=== PATIENT | female | born 1990 | race Caucasian/White ===

== ENCOUNTER 2025-03-02 14:30 | Outpatient (RCR) | payer MEDICAID, SELFPAY ==
--- NOTE | 2025-02-04 14:53 | PT.OIERPT ---
PT OP Initial Eval Patient Information Outpatient Physical Therapy Treatment Date: 02/04/25 Visit Reasons: GBS Medical Diagnosis: GBS; Difficulty Walking Treatment Dx #1: Difficulty Walking Date of Onset: 2021 Smoking Status Smoking Status: Current every day smoker (yes) Cessation Counseling Provided: BILLY was advised that quitting smoking is the single most important factor to protect the health of themselves and their family. Discussed the benefits of quitting smoking with patient. Encouraged patient to quit smoking and provided Cessation assistance materials and resources. Tobacco Use: Cigarette Years smoked: 10 Are you interested in quitting?: No Would you like additional Smoking Cessation Counseling?: No Initial Assessment Subjective: Pt is a 34 y/o female reports of GBS since 2021. Pt has difficulty with walking, balance, chores, self care, standing, and performing recreational activities. Objective: BLE AROM: all motions are WFL BLE MMTs: grossly 3+/5 Sit-Stand Test: 7 reps Assessment: Pt demonstrate BLE weakness, imbalance, and gait difficulty leading to difficulty with ADLs. Pt will benefit from physical therapy to increase mobility, strength, and work on ambulation Short Term and Shelter Goals 1) Increase BLE MMTs grossly to 4-/5 in 12 wks to be able to perform chores 2) Increase sit-stand reps to 12 reps in 12 wks to improve overall LE endurance to be able to perform self care activities 3) Improve gait chief mechanical officer in 12 wks to be able to transition to 4ww 4) Increase balance in 12 wks to prevent future falls 5) Indep with HEP Treatment Plan 1) Manual Therapy 2) Therapeutic Activities 3) Therapeutic Exercises 4) Balance Training 5) Gait Training Frequency and Duration: 2 x wk for 12 wks Certification Dates: 02/04/25 to 05/06/25 Procedure Charges OP PT Eval Mod Complex 30 minutes: Yes
--- NOTE | 2025-02-12 15:05 | PT.ODAYNRPT ---
PT Outpatient Daily Note OP Daily Note Outpatient Physical Therapy Treatment Date: 02/12/25 Visit Reasons: GBS Subjective: Pt fell ~ 2 weeks ago. Pt notice a bump in her left ankle. Pt has been trying to walk more lately with her walker. Objective: Please see flow chart for list of ther ex performed Assessment: inspected left ankle notice which looked normal. Pt advised to schedule appt with PCP if ankle pain worsen. Pt gave verbal understanding. Pt fatigue post PT session Plan: Continue with PT Length of Time (minutes) of Treatment: 30 Minutes Procedure Charges Therapeutic Exercise 30 minutes: Yes
--- NOTE | 2025-02-16 15:23 | PTNOTE_ITS ---
PT Outpatient Daily Note OP Daily Note Outpatient Physical Therapy Treatment Date: 02/16/25 Visit Reasons: GBS Subjective: Pt fell yesterday grabbing a storage battery charger from the outlet. Pt feels okay and notice a small bruise on her knee. Pt denies of soreness after last session Objective: Please see flow chart for list of ther ex performed Assessment: progress hip exercises with YTB with good tolerance. Pt pace throughout PT session to decrease fatigue Plan: Continue with PT Length of Time (minutes) of Treatment: 30 Minutes Procedure Charges Therapeutic Exercise 30 minutes: Yes
--- NOTE | 2025-02-19 15:58 | PT.ODAYNRPT ---
PT Outpatient Daily Note OP Daily Note Outpatient Physical Therapy Treatment Date: 02/19/25 Visit Reasons: GBS Subjective: Pt's feeling better. Pt wants to be push a little more Objective: Please see flow chart for list of ther ex performed Assessment: improved control with LEs during monster and side step exercises Plan: Continue with PT Length of Time (minutes) of Treatment: 30 Minutes Procedure Charges Therapeutic Exercise 30 minutes: Yes
--- NOTE | 2025-02-23 14:47 | PTNOTE_ITS ---
PT Outpatient Daily Note OP Daily Note Outpatient Physical Therapy Treatment Date: 02/23/25 Visit Reasons: GBS Subjective: Pt's mentioned back of her feet L>R is hurting. Pt has KT on it right now and wants therapist to check. Objective: Please see flow chart for list of ther ex performed Assessment: inspected left heel pain. Pt exhibit mild coby's deformity. 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 Added tandem walking in PB to exercise program; patient was able to complete exercise with good coordination Plan: Continue with PT Length of Time (minutes) of Treatment: 30 Minutes Procedure Charges Therapeutic Exercise 30 minutes: Yes
--- NOTE | 2025-03-02 15:25 | PT.ODAYNRPT ---
PT Outpatient Daily Note OP Daily Note Outpatient Physical Therapy Treatment Date: 03/02/25 Visit Reasons: GBS Subjective: Pt's legs are stronger. Pt mentioned she's getting her left knee xray and possible MRI. Pt further reports of improving sit to stand. Objective: Please see flow chart for list of ther ex performed Assessment: improve control with gait and sit to stand transition with less use of the hands Plan: Continue with PT Length of Time (minutes) of Treatment: 30 Minutes Procedure Charges Therapeutic Exercise 30 minutes: Yes
== END 2025-03-03 23:59 | disposition home or self-care (01) ==
LOC: CPTX 14:30
PROVIDERS: PCP Nurse Practitioner Family; Referring Provider Nurse Practitioner Family; Visit Provider Nurse Practitioner Family
DX: R26.2 Difficulty in walking, not elsewhere classified (principal); R26.89 Other abnormalities of gait and mobility; R53.1 Weakness; G61.0 Guillain-Barre syndrome; Z71.6 Tobacco abuse counseling; F17.210 Nicotine dependence, cigarettes, uncomplicated
CPT/HCPCS: 97110; 97162

== ENCOUNTER → 2025-03-16 | Outpatient (CLI) | payer MEDICAID, SELFPAY ==
--- NOTE | 2025-03-16 15:55 | XR_ITS ---
Examination: Knee, left , 3 views Technique: Knee AP, lateral, oblique 3 views Date and time of exam: March 16, 2025 1721 hours INDICATIONS: Left knee pain beginning one month ago. FINDINGS: Severe osteopenia Mild to moderate near medial joint space Mild narrowing patellofemoral joint No fractures IMPRESSION: Mild to moderate narrowing medial joint space Mild narrowing patellofemoral joint
--- NOTE | 2025-03-16 15:55 | XR_ITS ---
Examination: Foot bilateral, 6 views Technique: AP, oblique, lateral views each foot total 6 views Date and time of exam: March 16, 2025 1721 hours INDICATIONS: Bilateral foot pain beginning one month ago FINDINGS: Moderate osteopenia Bilateral mild narrowing tarsal, tarsometatarsal, metatarsal phalangeal joints No erosive arthritis Mild bunion deformity right foot IMPRESSION: Bilateral mild narrowing joints of the foot No erosive arthritis Mild bunion deformity right foot
== END | disposition home or self-care (01) ==
PROVIDERS: PCP Nurse Practitioner Family; Referring Provider Nurse Practitioner Family; Visit Provider Nurse Practitioner Family
DX: M21.611 Bunion of right foot (principal); M25.872 Other specified joint disorders, left ankle and foot; M25.871 Other specified joint disorders, right ankle and foot; M25.862 Other specified joint disorders, left knee
CPT/HCPCS: 73562; 73630

== ENCOUNTER → 2025-03-30 | Outpatient (CLI) | payer MEDICAID, SELFPAY ==
[2025-03-30 09:07] LABS: HCG Qualitative,Urine Negative
--- NOTE | 2025-03-30 09:41 | XR_ITS ---
Examination: MRI of brain without intravenous contrast. MRI brain with intravenous contrast. Date and time of exam:March 30, 2025 1103 hours INDICATIONS: Patient fell 2021 followed by headaches numbness in the left side of the head and dizziness daily Technique: Multiple axial and sagittal images of the brain to been obtained. Siemens high-resolution 1.52 Shila short bore scanner utilized. Sagittal sections, T1 weighted images, TR 500, TE 14, are performed. Axial sections proton-density and T2-weighted images have been obtained. Inversion recovery axial images, TR 9260, TE 111, TR 2500. Diffusion weighted images, axial sections, TR 4800, TE 128, B value 1000. Axial sections, ADC map, TR 4800, TE 128. Axial and coronal images were also obtained post 20 cc gadolinium administered intravenously. Findings:: Enlargement of the sella turcica is not present. The optic chiasm and infundibular stalk are not remarkable. There is no localized enlargement of the medulla or rafaela. Fourth ventricle and cerebellar tonsils appear normal in position. No subacute area of hemorrhage density is seen. Fourth ventricle is midline. Mass in the cerebellopontine angle region is not evident. 7th and 8th nerve complexes exhibit symmetry Globes are symmetrical Orbital musculature including medial lateral rectus muscles do not exhibit abnormality Increased white matter signal is not seen Effacement of the cortical sulcal markings is not identified. Mass effect upon the ventricular system is not identified. Diffusion-weighted images demonstrate no focus of restricted diffusion Contrast images demonstrate no abnormal enhancement Bilateral mastoiditis Impression: Negative for acute hemorrhage mass effect or midline shift No acute infarct No MR findings diagnostic for demyelinating disease Bilateral mastoiditis
== END | disposition home or self-care (01) ==
LOC: SMRI 08:38
PROVIDERS: PCP Physician Assistant; Referring Provider Physician Assistant; Visit Provider Physician Assistant
DX: R51.9 Headache, unspecified (principal); R42 Dizziness and giddiness; H70.93 Unspecified mastoiditis, bilateral; S06.0X9S Concussion with loss of consciousness of unspecified duration, sequela; W19.XXXS Unspecified fall, sequela
CPT/HCPCS: 70553; 81025; A9579

== ENCOUNTER 2025-04-02 14:00 | Outpatient (RCR) | payer MEDICAID, SELFPAY ==
--- NOTE | 2025-03-12 15:01 | PT.ODAYNRPT ---
PT Outpatient Daily Note OP Daily Note Outpatient Physical Therapy Treatment Date: 03/12/25 Visit Reasons: GBS Subjective: Pt's legs are tired and sore. Pt mentioned she walked a lot and went up/down 20 steps. Pt's body is hurting all over again. Objective: Please see flow chart for list of ther ex performed Assessment: decrease BLE resistance today due to fatigue prior to PT session. Pt tolerate all modified exercises today Plan: Continue with PT Length of Time (minutes) of Treatment: 30 Minutes Procedure Charges Therapeutic Exercise 30 minutes: Yes
--- NOTE | 2025-03-16 15:50 | PTNOTE_ITS ---
PT Outpatient Daily Note OP Daily Note Outpatient Physical Therapy Treatment Date: 03/16/25 Visit Reasons: GBS Subjective: Pt fell yesterday and hit her buttocks. Pt notice some soreness but feels okay to do therapy. Objective: Please see flow chart for list of ther ex perfomed Assessment: worked on ALTAGRACIA today to help with dynamic balance and static balance. Pt de monstrate unsteady with GT using one hand as support in PB and will require more practice for improvement Plan: Continue with PT Length of Time (minutes) of Treatment: 30 Minutes Procedure Charges Therapeutic Exercise 30 minutes: Yes
--- NOTE | 2025-03-19 15:03 | PT.ODAYNRPT ---
PT Outpatient Daily Note OP Daily Note Outpatient Physical Therapy Treatment Date: 03/19/25 Visit Reasons: GBS Subjective: Pt is having a good day and more energize today. Objective: Please see flow chart for list of ther ex performed Assessment: patient's overall gait has improved with wider ALTAGRACIA noted. Pt was fatigue post PT session and require longer rest breaks today Plan: Continue with PT Length of Time (minutes) of Treatment: 30 Minutes Procedure Charges Therapeutic Exercise 30 minutes: Yes
--- NOTE | 2025-03-23 15:06 | PT.ODAYNRPT ---
PT Outpatient Daily Note OP Daily Note Outpatient Physical Therapy Treatment Date: 03/23/25 Visit Reasons: GBS Subjective: Pt notice she's walking better with improved balance. Pt was able to take a few steps from the car door to the trunk without her walker. 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
--- NOTE | 2025-03-31 15:05 | PT.ODAYNRPT ---
PT Outpatient Daily Note OP Daily Note Outpatient Physical Therapy Treatment Date: 03/31/25 Visit Reasons: GBS Subjective: Pt reports she is doing ok, mentioned she received her imaging results. Pt shared she has narrowing of L knee and B ankle and bunion on L foot. Objective: Please see flow sheet for ther ex list. Assessment: Interventions completed alternating sitting and standing to maximize participation. Plan: Continue with POC. Length of Time (minutes) of Treatment: 30 Minutes Procedure Charges Therapeutic Exercise 30 minutes: Yes
--- NOTE | 2025-04-02 14:30 | PT.ODAYNRPT ---
PT Outpatient Daily Note OP Daily Note Outpatient Physical Therapy Treatment Date: 04/02/25 Visit Reasons: GBS Subjective: Pt's legs are sore and hurt from lunges last session. Pt almost fell a few days ago. Objective: Please see flow chart for list of ther ex performed Assessment: no resistance used today due to reported soreness and pain from last session. Pt tolerate all exercises today. Pt continues to demonstrate improve endurance and able to walk longer with walker without resting Plan: Continue with PT Length of Time (minutes) of Treatment: 30 Minutes Procedure Charges Therapeutic Exercise 30 minutes: Yes
== END 2025-04-03 23:59 | disposition home or self-care (01) ==
LOC: CPTX 14:00
PROVIDERS: PCP Nurse Practitioner Family; Referring Provider Nurse Practitioner Family; Visit Provider Nurse Practitioner Family
DX: R26.2 Difficulty in walking, not elsewhere classified (principal); R26.89 Other abnormalities of gait and mobility; R53.1 Weakness; G61.0 Guillain-Barre syndrome
CPT/HCPCS: 97110

== ENCOUNTER 2025-04-30 14:00 | Outpatient (RCR) | payer MEDICAID, SELFPAY ==
--- NOTE | 2025-04-09 15:04 | PT.ODAYNRPT ---
PT Outpatient Daily Note OP Daily Note Outpatient Physical Therapy Treatment Date: 04/09/25 Visit Reasons: GBS Subjective: Pt's legs are stronger. Pt is using less of the knee brace on the left side Objective: Please see flow chart for list of ther ex performed Assessment: improved BLE control with lunges and hip exercises. Pt exhibit difficulty with airex balance exercise due to decrease bilateral feet sensation where she relax on the knee to counter balance sway Plan: Continue with PT Length of Time (minutes) of Treatment: 30 Minutes Procedure Charges Therapeutic Exercise 30 minutes: Yes
--- NOTE | 2025-04-13 16:03 | PT.ODS1RPT ---
PT OP Progress/Discharge Note Date of Service: 04/13/25 Progress Note/DC Note Progress Note/Discharge Note: Progress Note Patient Information Visit Reasons: GBS Medical Diagnosis: GBS; Difficulty Walking Treatment Dx #1: Difficulty Walking Service Continue Service or Discharge: Continue Service Certification Date Certification Dates: 04/13/25 to 07/14/25 Status Subjective: Pt is now walking full-time with use of walker. At home she she still stop using the walker intermittently around the house while using the hands to wall walk. Pt notice improved strength and overall endurance allowing her to start light ADLs, stand, and ambulate with less help with significant other. Objective: BLE AROM: all motions are WFL BLE MMTs: grossly 4-/5 Sit-Stand Reps: 10 reps Gait Observation: step through with walker Assessment: Pt is progressing with BLE strength and overall endurance allowing her to ambulate, stand, and perform light ADLs around the house with less limitation. Pt further reports of less fall episode since starting physical therapy due to improved overall static and dynamic balance. Pt has not met set goals and will continue to benefit from physical therapy; thank you for your referrals. Plan: Continue with PT/POC and add 12 sessions (2 x wk for 6 wks) Procedure Charges Therapeutic Exercise 30 minutes: Yes
--- NOTE | 2025-04-15 14:37 | PT.ODAYNRPT ---
PT Outpatient Daily Note OP Daily Note Outpatient Physical Therapy Treatment Date: 04/15/25 Visit Reasons: GBS Subjective: Pt reports she is feeling more fatigued today, has been that way for about 2 days. Objective: Please see flow sheet for ther ex list. Assessment: Pt presents in clinic with decrease endurance , regressed interventions to accommodate fatigue. Plan: Continue with POC. Length of Time (minutes) of Treatment: 30 Minutes Procedure Charges Therapeutic Exercise 30 minutes: Yes
--- NOTE | 2025-04-30 14:34 | PT.ODAYNRPT ---
PT Outpatient Daily Note OP Daily Note Outpatient Physical Therapy Treatment Date: 04/30/25 Visit Reasons: GBS Subjective: Pt reports back doing ok, had a spinal tap procedure about 3 days ago so she is still sore. Objective: Please see flow sheet for ther ex list. Assessment: Interventions given alternating sitting and standing to maximize pt participation. Plan: Continue with pOC. Length of Time (minutes) of Treatment: 30 Minutes Procedure Charges Therapeutic Exercise 30 minutes: Yes
== END 2025-05-03 23:59 | disposition home or self-care (01) ==
LOC: CPTX 14:00
PROVIDERS: PCP Nurse Practitioner Family; Referring Provider Nurse Practitioner Family; Visit Provider Nurse Practitioner Family
DX: R26.2 Difficulty in walking, not elsewhere classified (principal); R26.89 Other abnormalities of gait and mobility; G61.0 Guillain-Barre syndrome
CPT/HCPCS: 97110

== ENCOUNTER 2025-05-18 14:30 | Outpatient (RCR) | payer MEDICAID, SELFPAY ==
--- NOTE | 2025-05-11 15:07 | PT.ODAYNRPT ---
PT Outpatient Daily Note OP Daily Note Outpatient Physical Therapy Treatment Date: 05/11/25 Visit Reasons: GBS Subjective: Pt reports she is sore and a little stiff today, did some waking and even got to ride on a swing at a park Saturday the . Objective: Please see flow sheet for ther ex list. Assessment: Progressing closed chain interventions repetition and exercises per pt tolerance. Plan: Continue with poC. Length of Time (minutes) of Treatment: 30 Minutes Procedure Charges Therapeutic Exercise 30 minutes: Yes
--- NOTE | 2025-05-18 14:52 | PTNOTE_ITS ---
PT Outpatient Daily Note OP Daily Note Outpatient Physical Therapy Treatment Date: 05/18/25 Visit Reasons: GBS Subjective: Pt reports feeling like she is walking better. Pt shared that she went to see her doctor, had an x-ray for her tail bone. Pt mentioned that the doctor also gave her a lift for her shoe due to leg length discrepancy. Objective: Please see flow sheet for ther ex list. 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 Plan: Continue with pOC. Length of Time (minutes) of Treatment: 30 Minutes Procedure Charges Therapeutic Exercise 30 minutes: Yes
== END 2025-06-03 23:59 | disposition home or self-care (01) ==
LOC: CPTX 14:30
PROVIDERS: PCP Nurse Practitioner Family; Referring Provider Nurse Practitioner Family; Visit Provider Nurse Practitioner Family
DX: R26.2 Difficulty in walking, not elsewhere classified (principal); R26.89 Other abnormalities of gait and mobility; R53.1 Weakness; G61.0 Guillain-Barre syndrome
CPT/HCPCS: 97110

== ENCOUNTER → 2025-06-16 | Outpatient (CLI) | payer MEDICAID, SELFPAY ==
--- NOTE | 2025-06-16 15:00 | XR_ITS ---
Examination: Thyroid sonography complete TECHNIQUE: Grayscale sonographic images thyroid lobes Date and time: June 16, 2025 1525 hours INDICATIONS: Diagnosis Santana's thyroiditis 3 months ago with abnormal thyroid function tests FINDINGS: Right thyroid 5.8 cm Midpole nodule 4 x 5 mm Left thyroid 3.9 cm Midpole cyst 6 x 5 mm Heterogeneous echogenicity throughout both thyroid lobes IMPRESSION: Right thyromegaly Heterogeneous echogenicity throughout both thyroid lobes
== END | disposition home or self-care (01) ==
LOC: CDIM 15:09
PROVIDERS: PCP Internal Medicine Endocrinology, Diabetes & Metabolism; Referring Provider Internal Medicine Endocrinology, Diabetes & Metabolism; Visit Provider Internal Medicine Endocrinology, Diabetes & Metabolism
DX: E01.0 Iodine-deficiency related diffuse (endemic) goiter (principal); G61.0 Guillain-Barre syndrome
CPT/HCPCS: 76536

== ENCOUNTER 2025-07-01 14:10 | Outpatient (RCR) | payer MEDICAID, SELFPAY ==
--- NOTE | 2025-07-02 08:54 | PT.ODS1RPT ---
PT OP Progress/Discharge Note Date of Service: 07/01/29 Progress Note/DC Note Progress Note/Discharge Note: Progress Note Patient Information Visit Reasons: GBS Medical Diagnosis: GBS; Difficulty Walking Treatment Dx #1: Difficulty Walking Service Continue Service or Discharge: Continue Service Status Subjective: Pt is doing much better and notice her legs are getting stronger. At times Pt will be carrying her walker instead of using it properly. Pt started walking inside her house with less use of any device. Pt further mention stairs, steps, stand, and overall balance has improved allowing her to start to meal prep and cook. Pt will like to continue physical therapy. Objective: BLE AROM: all motions are WNL BLE MMTs: grossly 4-/5 Sit-Stand: 11 reps TU sec Sharpen Romber sec Assessment: Pt continues to progress with BLE strength, endurance, and balance allowing her to start light ADLs, walk longer, and perform functional tasks with less limitation. Despite Pt's improvement Pt will continue to benefit from additional physical therapy to increase endurance, balance, and work on stability. Pt further demonstrate significant safety awareness during ambulation, standing, and perform chores around the house; thank you for your referrals. Plan: Continue with PT and add 12 sessions (2 x wk for 6 wks) Procedure Charges Therapeutic Exercise 30 minutes: Yes
== END 2025-07-04 23:59 | disposition home or self-care (01) ==
LOC: CPTX 14:10
PROVIDERS: PCP Nurse Practitioner Family; Referring Provider Nurse Practitioner Family; Visit Provider Nurse Practitioner Family
DX: R26.2 Difficulty in walking, not elsewhere classified (principal); R26.89 Other abnormalities of gait and mobility; R53.1 Weakness; G61.0 Guillain-Barre syndrome
CPT/HCPCS: 97110

== ENCOUNTER 2025-07-08 15:05 | Outpatient (RCR) | payer MEDICAID, SELFPAY ==
--- NOTE | 2025-07-08 16:32 | PT.ODAYNRPT ---
PT Outpatient Daily Note OP Daily Note Outpatient Physical Therapy Treatment Date: 07/08/25 Visit Reasons: GBS Subjective: Pt reports noticing progress and feels she is moving faster. Objective: Please see flow sheet for ther ex list. Assessment: During last reps of STS exercise pt demonstrated increase lubar lordosis when going from sitting to standing compensating for muscle fatigue and poor quad firing. Plan: Continue with pOC. Work on STS and squat mechanics. Length of Time (minutes) of Treatment: 30 Minutes Procedure Charges Therapeutic Exercise 30 minutes: Yes
--- NOTE | 2025-07-14 09:03 | PT.ODS1RPT ---
PT OP Progress/Discharge Note Date of Service: 07/14/25 Progress Note/DC Note Progress Note/Discharge Note: DC Note Patient Information Visit Reasons: GBS Service Discharge Date: 07/14/25 Status Assessment: Pt has been seen for 20 visits (eval + 19 visits). Pt last treated on 07/08/25. At this time Pt will be d/c from care care due to plan of care 07/14/25 and no further auth via provider to resume physical therapy. Pt did not meet set goals in therapy. Pt will need a new PT order and auth to continue physical therapy; thank you for your referrals.
== END 2025-08-03 23:59 | disposition home or self-care (01) ==
LOC: CPTX 15:05
PROVIDERS: PCP Nurse Practitioner Family; Referring Provider Nurse Practitioner Family; Visit Provider Nurse Practitioner Family
DX: R26.2 Difficulty in walking, not elsewhere classified (principal); R26.89 Other abnormalities of gait and mobility; R53.1 Weakness; G61.0 Guillain-Barre syndrome
CPT/HCPCS: 97110

== ENCOUNTER 2025-10-26 14:00 | Outpatient (RCR) | payer MEDICAID, SELFPAY ==
--- NOTE | 2025-10-13 15:51 | PTNOTE_ITS ---
PT OP Initial Eval Patient Information Outpatient Physical Therapy Treatment Date: 10/13/25 Visit Reasons: low back pain Medical Diagnosis: z74.09 Treatment Dx #1: Balance Deficits Treatment Dx #2: Difficulty Walking Start of Care: 10/13/25 Date of Onset: 2021 Smoking Status Smoking Status: Current every day smoker Cessation Counseling Provided: BILLY was advised that quitting smoking is the single most important factor to protect the health of themselves and their family. Discussed the benefits of quitting smoking with patient. Encouraged patient to quit smoking and provided Cessation assistance materials and resources. Tobacco Use: Cigarette Years smoked: 10 Are you interested in quitting?: No Would you like additional Smoking Cessation Counseling?: No Initial Assessment Subjective: Pt is a 35 y/o female who was diagnosed with GBS in 2021. Since diagnosis Pt has difficulty with standing, balance, walking, chores, self care, cooking, and performing recreational activities. Objective: BLE AROM: all motions are WFL BLE MMTs: grossly 4-/5 TUG (no walker): 11 sec Sit-Stand (no hands): 8 reps Sharpen Romber sec with instability Assessment: Pt demonstrate decrease mobility, strength, and endurance leading to difficulty with ADLs. Pt will benefit from physical therapy to increase mobility, strength, and work on overall endurance Short Term and Long-Term Goals 1) Increase sit to stand reps to 14 reps in 8 wks to be able to walk longer than 30 mins without AD 2) Increase sharpen romberg to 20 sec in 8 wks to be able to perform standing chores with less limitation 3) Increase BLE MMTs grossly to 4/5 in 8 wks to be able to perform recreational activities 4) Indep with HEP Treatment Plan 1) Manual Therapy 2) Therapeutic Activities 3) Therapeutic Exercises 4) Gait Training 5) Balance Training Frequency and Duration: 2 x wk for 8 wks Certification Dates: 10/13/25 to 01/11/26 Procedure Charges OP PT Eval Mod Complex 30 minutes: Yes
--- NOTE | 2025-10-26 14:49 | PT.ODAYNRPT ---
PT Outpatient Daily Note OP Daily Note Outpatient Physical Therapy Treatment Date: 10/26/25 Visit Reasons: low back pain Subjective: Pt is walking more inside the house without her walker. Pt also notice decrease knee buckling. Objective: Please see flow chart for list of ther ex performed Assessment: patient was fatigue post sci fit and decrease resistance to 3.5 towards the last few mins of the exercise. Pt demonstrate safe ambulation in gym without her walker Plan: Continue with PT Length of Time (minutes) of Treatment: 30 Minutes Procedure Charges Therapeutic Exercise 30 minutes: Yes
== END 2025-11-03 23:59 | disposition home or self-care (01) ==
LOC: CPTX 14:00
PROVIDERS: PCP Nurse Practitioner Family; Referring Provider Nurse Practitioner Family; Visit Provider Nurse Practitioner Family
DX: R26.2 Difficulty in walking, not elsewhere classified (principal); R26.89 Other abnormalities of gait and mobility; Z74.09 Other reduced mobility; Z71.6 Tobacco abuse counseling; F17.210 Nicotine dependence, cigarettes, uncomplicated
CPT/HCPCS: 97110; 97162